=== PATIENT | male | born 1985 | race American Indian/Alaskan Native ===

== ENCOUNTER 2019-04-15 22:50 | Emergency (ER) | payer SELFPAY ==
[2019-04-15 23:10] VITALS: BP 171/90
== END 2019-04-16 01:25 | disposition left against medical advice (07) ==
LOC: ED 22:50
DX: J02.9 Acute pharyngitis, unspecified (principal); Z53.21 Procedure and treatment not carried out due to patient leaving prior to being seen by health care provider

== ENCOUNTER 2019-05-04 17:07 | Emergency (ER) | payer OTHER ==
--- NOTE | 2019-05-04 18:04 | Event Note ---
ED Screening Note Date of service: 05/04/19 Time: 18:00 ED Screening Note: Pt complains of right lower arm and hand numbness/tingling since 2pm HTN-states compliance with meds +tingling in right foot Negative rhomberg; +decreased senasation to light touch on right Denies hx of MD/CVA This initial assessment/diagnostic orders/clinical plan/treatment(s) is/are subject to change based on patients health status, clinical progression and re- assessment by fellow clinical providers in the ED. Further treatment and workup at subsequent clinical providers discretion. Patient/guardian urged not to elope from the ED as their condition may be serious if not clinically assessed and managed. Initial orders include: CT labs
[2019-05-04 19:35] LABS: Basophils # (Auto) 0.1 K/mm3 (0.0-0.1); Eosinophils # (Auto) 0.2 K/mm3 (0.0-0.4); Hematocrit 43.4 % (35.5-45.6); Lymphocytes # (Auto) 2.9 K/mm3 (1.2-5.4); Lymphocytes % (Auto) 34.1 % (13.4-35.0); Mean Corpuscular HGB Conc 32 % (32-34); Mean Corpuscular Volume 76 fl (84-94); Monocytes # (Auto) 0.8 K/mm3 (0.0-0.8); Monocytes % (Auto) 9.6 % (0.0-7.3); Platelet Count 216 K/mm3 (140-440); Red Blood Count 5.72 M/mm3 (3.65-5.03); Red Cell Distribution Width 16.6 % (13.2-15.2)
[2019-05-04 19:52] LABS: Alanine Aminotransferase 15 units/L (7-56); Albumin 4.1 g/dL (3.9-5); BUN/Creatinine Ratio 10; Blood Urea Nitrogen 11 mg/dL (9-20); Hemolysis Index 10
--- NOTE | 2019-05-05 01:46 | Emergency Department Report ---
ED General Adult HPI - General Chief complaint: Neuro Symptoms/Deficit Stated complaint: L ARM PAIN Time Seen by Provider: 05/04/19 18:00 Source: patient Mode of arrival: Ambulatory Limitations: No Limitations - History of Present Illness Initial comments: Reports some tingling in his right hand today. Reports he is on gabapentin for nerve pain and that it is not working as well and requesting some stronger to treat his nerve pain. Requesting rx of anxiety also. Reports he is from [place] where he was being followed for TIA and nerve pain. Reports he had tingling today in his right hand and wanted to come in for evaluation to make sure he was not having another TIA. - Related Data Allergies Allergy/AdvReac Type Severity Reaction Status Date / Time lisinopril Allergy Unknown Verified 04/15/19 23:10 ED Review of Systems ROS: Stated complaint: L ARM PAIN Other details as noted in HPI Other: GENERAL: No weight change, fatigue, fever, chills, or night sweats SKIN: No changes in skin or hair, no itching, no rashes, no jaundice HEAD: No trauma EYES: No blurriness, tearing, itching, acute visual loss, conjunctival discoloration, or scleral icterus EARS: No hearing loss, tinnitus, vertigo, or earache NOSE: No rhinorrhea, stuffiness, sneezing, itching, or epistaxis MOUTH: No bleeding gums, hoarseness, sore throat, or swelling CARDIAC: No new murmur, chest pain, palpitations, dyspnea on exertion, orthopnea, PND, or edema RESPIRATORY: No shortness of breath, wheeze, cough, sputum production, hemoptysis GI: No abdominal pain, nausea, vomiting, dysphagia, diarrhea, constipation, hematemesis, melena, hematochezia URINARY: No frequency, urgency, polyuria, dysuria, hematuria, or incontinence MUSCULOSKELETAL: No muscle weakness, joint stiffness, decrease in range of motion, redness, swelling NEUROLOGIC: Tingling in right hand. No headache, syncope, loss of sensation, numbness, tremors, weakness, paralysis, seizures HEMATOLOGIC: No anemia, easy bruising, bleeding, petechiae, or purpura ENDOCRINE: No hot or cold intolerance, sweating, polyuria, polydipsia or, polyphagia no thyroid problems PSYCHIATRIC: No change in mood, no anxiety, no depression ED Past Medical Hx - Past Medical History Hx Hypertension: Yes Additional medical history: tia in january, - Surgical History Past Surgical History?: No - Social History Smoking Status: Former Smoker Substance Use Type: None ED Physical Exam - General Limitations: No Limitations - Other Other exam information: GENERAL: Patient in no acute distress HEAD: Normocephalic, atraumatic EYES: PERRLA, EOM intact, no scleral icterus, no conjunctival hemorrhage, visual soliz and acuity wnl NOSE: No tenderness, discharge, sinus tenderness MOUTH: No erythema, bleeding, exudate HEART: Regular rate and rhythm, no murmur, S1-S2 are auscultated, no edema, pulses are symmetric LUNGS: No respiratory distress. Bilateral breath sounds, No tachypnea, No retractions, No wheezing, rales, rhonchi ABDOMEN: Normal bowel sounds, abdomen soft, no tenderness, no rebound, no guarding, no distention, no masses, no CVA tenderness MUSCULOSKELETAL: Normal joint range of motion, no redness, no swelling, no tenderness NEUROLOGIC: GCS 15, Alert and Oriented x3, Cranial nerves intact, normal sensation, normal strength, no cerebellar deficit, NIHSS 0 PSYCHIATRIC: No homicidal or suicidal ideation, no anxiety, no depression, no hallucinations SKIN: Skin is warm and dry, no wounds, no rashes NEUROLOGIC: normal gait ED Course Vital Signs 05/04/19 05/05/19 18:00 00:25 Temperature 99.4 F 98.7 F Pulse Rate 88 77 Respiratory 18 18 Rate Blood Pressure 169/101 Blood Pressure 161/105 [Left] O2 Sat by Pulse 98 100 Oximetry ED Medical Decision Making - Lab Data Result diagrams: 05/04/19 19:20 05/04/19 19:20 Laboratory Results - last 24 hr 05/04/19 05/04/19 19:20 19:20 WBC 8.7 RBC 5.72 H Hgb 14.0 Hct 43.4 MCV 76 L MCH 24 L MCHC 32 RDW 16.6 H Plt Count 216 Lymph % (Auto) 34.1 [place] % (Auto) 9.6 H Eos % (Auto) 2.0 Baso % (Auto) 1.0 Lymph # 2.9 [place] # 0.8 Eos # 0.2 Baso # 0.1 Seg Neutrophils % 53.3 Seg Neutrophils # 4.6 Sodium 142 Potassium 3.5 L Chloride 106.9 Carbon Dioxide 21 L Anion Gap 18 BUN 11 Creatinine 1.1 Estimated GFR > 60 BUN/Creatinine Ratio 10 Glucose 125 H Calcium 9.0 Total Bilirubin 0.40 AST 17 ALT 15 Alkaline Phosphatase 63 Total Protein 6.9 Albumin 4.1 Albumin/Globulin Ratio 1.5 - EKG Data When compared to previous EKG there are: no significant change - Medical Decision Making Patient comfortable. Reports symptom improvement. Plan discharge with outpatient follow up. Return if any worsening. Critical care attestation.: If time is entered above; I have spent that time in minutes in the direct care of this critically ill patient, excluding procedure time. ED Disposition Clinical Impression: Arm paresthesia, right Disposition: DC-01 TO HOME OR SELFCARE Is pt being admited?: No Condition: Stable Instructions: Paresthesia (ED) Referrals: LONI NARAYANAN MD [Staff Physician] - 2-3 Days ANJELICA CALLES MD [Staff Physician] - 2-3 Days Time of Disposition: 01:43
[2019-05-05 01:57] VITALS: BP 148/108
== END 2019-05-05 01:55 | disposition home or self-care (01) ==
LOC: ED 17:07
DX: R20.2 Paresthesia of skin (principal); I10 Essential (primary) hypertension; Z88.6 Allergy status to analgesic agent
CPT/HCPCS: 36415; 80053; 85025; 93005; 93010